=== PATIENT | female | born 1980 | race African-American/Black ===

== ENCOUNTER 2016-03-18 11:15 | Inpatient (IN) | payer MEDICARE ==
[~2016-03-18] VITALS: Ht 162.6 cm; Wt 96.8 kg
--- NOTE | ~2016-03-18 | HEMODYNAMI ---
PATIENT:DANIEL VYAS MEDICAL RECORD: [id number] : 84 [id number] ADMISSION DATE: 03/18/16 Generatedon:03/20/201612:19 Patient name: DANIEL VYAS Patient #: [id number] SSN: : 1980 Date of study: 03/20/2016 Page: Of Hemodynamic Procedure Report Patient Data Patient Demographics Procedure consent was obtained First Name: DANIEL Gender: Female Last Name: ASAEL : 1980 Middle Initial: RUFUS Age: 35 year(s) Patient #: [id number] Race: Black Additional ID: [id number] Contact details [address]: [address] [place] [address] State: [place] City: [place] Zip code: [address] Past Medical History Allergies: No known allergies Admission Admission Data Admission Date: 03/18/2016 Admission Time: 11:15 Room #: D.2107 Weight (lbs.): 204 Weight (kg.): 92.53 Procedure Procedure Types Cath Procedure Peripheral Cath Diagnostic Procedure Cath Peripheral Abd/Extremity Extremities Bilat Lower Extremity Procedure Description Procedure Date Procedure Date: 03/20/2016 Procedure Start Time: 10:05 Procedure Staff Name Function Rolf Adam MD Performing Physician Mathew Israel RT Scrub Andressa Arzola RN Nurse Michelle Yao RT [employer] Finisher Michelle Yao RT Monitor Procedure Data Cath Procedure Fluoroscopy Diagnostic fluoroscopy Total fluoroscopy Time: time: 18.3 min 18.3 min Diagnostic fluoroscopy Total fluoroscopy dose: dose: 798.36 mGy 798.36 mGy Contrast Material Contrast Material Type Amount (ml) Isovue 300 225 Entry Location Entry Primary Successful Side Size Upsize Upsize Entry Closure Succes sful Closure Location (Fr) 1 (Fr) 2 (Fr) Remarks Device Remarks Femoral Right 5 Fr artery Femoral Exoseal artery Diagnostic catheters Device Type Used For End Catheter Placement Merit ULTRA BOLUS FLUSH 5Fr 65CM catheter Procedure Medications Medication Administration Route Dosage Oxygen NC 3 l/min Lidocaine 1% added to field 20 Heparin Flush Bag added to field 3 bags (1000units/500ml NS) Benadryl I.V. 50 mg Versed I.V. 0.5 mg Fentanyl I.V. 25 mcg Versed I.V. 0.5 mg Fentanyl I.V. 25 mcg Versed I.V. 0.5 mg Fentanyl I.V. 25 mcg Heparin Bolus I.V. 5000 units Nitroglycerin IC/IA I.C. 200 mcg Nitroglycerin IC/IA I.C. 200 mcg Heparin Bolus I.V. 2000 units Nitroglycerin IC/IA I.C. 200 mcg Hemodynamics Rest Heart Rate: 97 (bpm) Snapshots Pre Cath Intra NCS Post Cath Vital Signs Time Heart Resp SPO2 NIBP (mmHg) Rhythm Pain Sedation Rate (ipm) (%) Status Level (bpm) 9:20:59 97 25 Measuring NSR 0 (11) 10(A) , No pain 9:21:59 95 29 100 159/94(126) NSR 0 (11) 10(A) , No pain 9:26:29 93 20 98 160/97(138) NSR 0 (11) 10(A) , No pain 9:31:02 93 17 99 168/97(126) NSR 0 (11) 10(A) , No pain 9:35:34 96 19 99 163/95(128) NSR 0 (11) 10(A) , No pain 9:40:07 93 19 100 155/94(123) NSR 0 (11) 10(A) , No pain 9:44:35 93 18 100 162/93(118) NSR 0 (11) 10(A) , No pain 9:49:05 94 21 100 166/99(142) NSR 0 (11) 10(A) , No pain 9:53:38 95 17 99 165/95(134) NSR 0 (11) 10(A) , No pain 9:58:08 95 16 98 176/102(142) NSR 0 (11) 10(A) , No pain 10:02:45 96 18 100 178/101(139) NSR 0 (11) 10(A) , No pain 10:07:21 102 19 100 186/111(146) NSR 0 (11) 10(A) , No pain 10:12:00 95 18 100 173/102(143) NSR 0 (11) 9(A) , No pain 10:16:28 91 18 100 148/90(116) NSR 0 (11) 9(A) , No pain 10:20:52 91 20 100 151/93(115) NSR 0 (11) 9(A) , No pain 10:25:18 92 26 100 156/94(122) NSR 0 (11) 9(A) , No pain 10:29:47 91 16 100 156/92(120) NSR 0 (11) 9(A) , No pain 10:34:03 88 17 99 132/85(114) NSR 0 (11) 9(A) , No pain 10:38:29 91 19 98 124/65(98) NSR 0 (11) 9(A) , No pain 10:42:51 91 18 98 123/70(99) NSR 0 (11) 9(A) , No pain 10:47:08 93 20 97 127/77(100) NSR 0 (11) 9(A) , No pain 10:51:30 92 19 97 124/74(106) NSR 0 (11) 9(A) , No pain 10:56:51 87 16 99 145/88(110) NSR 0 (11) 9(A) , No pain 11:01:17 91 16 98 146/84(115) NSR 0 (11) 9(A) , No pain 11:05:44 92 18 98 141/84(116) NSR 0 (11) 9(A) , No pain 11:10:06 91 14 99 151/88(119) NSR 0 (11) 9(A) , No pain 11:14:32 91 16 99 152/90(114) NSR 0 (11) 9(A) , No pain 11:18:58 90 25 100 145/92(114) NSR 0 (11) 9(A) , No pain 11:23:20 92 18 99 160/100(136) NSR 0 (11) 9(A) , No pain 11:27:49 91 32 100 164/100(128) NSR 0 (11) 9(A) , No pain 11:32:21 94 23 98 147/88(121) NSR 0 (11) 9(A) , No pain 11:37:53 96 19 98 167/97(134) NSR 0 (11) 9(A) , No pain 11:42:25 97 17 99 168/100(135) NSR 0 (11) 9(A) , No pain 11:46:58 97 18 100 169/102(131) NSR 0 (11) 9(A) , No pain 11:51:33 97 16 98 168/95(146) NSR 0 (11) 9(A) , No pain 11:56:05 99 16 99 170/99(135) NSR 0 (11) 9(A) , No pain 12:00:39 101 16 100 170/102(132) NSR 0 (11) 9(A) , No pain 12:05:14 104 5 99 172/109(146) NSR 0 (11) 9(A) , No pain 12:09:48 105 13 98 174/108(139) NSR 0 (11) 9(A) , No pain 12:14:25 106 19 163/108(145) NSR 0 (11) 9(A) , No pain 12:18:55 123 15 174/112(140) NSR 0 (11) 9(A) , No pain Medications Time Medication Route Dose Verified Delivered Reason Notes E ffectiveness by by 10:03:16 Heparin Flush added 3 Andressa Andressa used for Bag to bags Dariusz Dariusz procedure (1000units/500ml field RN RN NS) 10:03:54 Oxygen NC 3 Andressa Andressa used for l/min Dariusz Dariusz line welder RN 10:04:02 Lidocaine 1% added 20ml Andressa Andressa used for to vial Dariusz Dariusz procedure field RN RN 10:04:31 Benadryl I.V. 50 mg Andressa Andressa Per Dariusz Dariusz physician RN RN 10:06:20 Versed I.V. 0.5 Andressa Andressa for sedation mg Dariusz Dariusz RN RN 10:06:26 Fentanyl I.V. 25 Andressa Andressa for sedation mcg Dariusz Dariusz RN RN 10:15:49 Versed I.V. 0.5 Andressa Andressa for sedation mg Dariusz Dariusz RN RN 10:15:53 Fentanyl I.V. 25 Andressa Andressa for sedation mcg [place] Dariusz RN RN 10:30:20 Versed I.V. 0.5 Andressa Andressa for sedation mg Dariusz Dariusz RN RN 10:30:24 Fentanyl I.V. 25 Andressa Andressa for sedation mcg [place] Dariusz RN RN 10:35:42 Heparin Bolus I.V. 5000 Andressa Andressa Per units [facility] physician RN RN 10:35:57 Nitroglycerin I.C. 200 Rolf Bansal for IC/IA mcg MD Jair Adam MD vasodilation 10:45:23 Nitroglycerin I.C. 200 Rolf Bansal for IC/IA mcg MD Jair Adam MD vasodilation 11:28:54 Heparin Bolus I.V. 2000 [facility]a [facility] 11:29:03 Nitroglycerin I.C. 200 Rolf Bansal for IC/IA mcg MD Jair Adam MD vasodilation Procedure Log Time Note 8:17:18 Patient Weight : 204 lbs 8:17:57 Use device set IR Diagnostic 8:18:00 Sterile Angiographic Pack opened to sterile field. 8:18:02 Bag Decanter opened to sterile field. 8:18:09 Acist Manifold opened to sterile field. 8:18:10 Acist Hand Control opened to sterile field. 8:18:12 Acist Syringe opened to sterile field. 8:18:25 Cook Unbound ConceptsSON 145cm guide wire opened to sterile field. 8:18:26 Micropuncture VSI 4FR kit opened to sterile field. 8:19:54 A Flexenclosure ULTRA BOLUS FLUSH 5Fr 65CM catheter was advanced over the wire and used for . 8:20:21 - 8:42:32 Time tracking: Regular hours 8:42:39 Plan of Care:Hemodynamics will remain stable., Cardiac rhythm will remain stable., Comfort level will be maintained., Respiratory function will remain adequate., Patient/ family verbilizes understanding of procedure., Procedure tolerated without complication., Recovers from procedure without complications.. 8:42:46 Signed procedure consent form obtained from patient. 8:43:06 - 8:44:18 H&P Date Dictated: 03/20/2016 Within 30 days and on chart.. 8:44:21 Pre-procedure instructions explained to patient. 8:44:22 Pre-op teaching completed and patient verbalized understanding. 8:44:24 Family in waiting room. 8:44:27 Patient NPO since Midnight. 8:44:34 Patient allergic to No known allergies 8:44:40 Is the patient allergic to Iodine/contrast media? No. 8:44:43 Is patient on blood thinner?Yes 8:44:52 Patient diabetic? Yes. 8:44:55 If diabetic: On Metformin? No 8:44:56 - 8:44:58 ----Pre-sedation anethsthesia assessment.---- 8:45:04 Previous problem with sedation/anesthesia? No ? 8:45:08 Snore? No 8:45:11 Sleep apnea? No 8:45:15 Deviated septum? No 8:45:17 Opens mouth fully? Yes 8:45:19 Sticks out tongue? Yes 8:45:22 Airway obstruction? No ? 8:45:35 Dentures? No ? 8:45:41 - 8:45:48 IV patent on arrival in left hand with 0.9% NaCl at KVO. 9:01:11 Marcello HENRY 260 guide wire opened to sterile field. 9:18:40 Pre procedure: right dorsailis pedis pulse Doppler 9:18:45 Pre procedure: right posterior tibial pulse Doppler 9:18:50 Pre procedure: left dorsailis pedis pulse Doppler 9:18:59 Pre procedure: left posterior tibial pulse Doppler 9:19:04 - 9:19:08 ECG and BP/O2 sat monitors applied to patient. 9:19:10 Vital chart was started 9:19:12 Baseline sample Acquired. 9:19:14 Full Disclosure recording started 9:19:15 - 9:19:24 Right groin area was prepped with chlora-prep and draped in sterile fashion 9:19:27 Alarms reviewed by Justus Muniz 9:19:28 Sharps counted by scrub and verified by RMontseNMontse 9:19:29 - 9:35:36 St Ko 5FR Sheath opened to sterile field. 10:02:18 Bonnie Sci Amplatz Super Stiff 75CM guide wire opened to sterile field. 10:03:16 Heparin Flush Bag (1000units/500ml NS) 3 bags added to field was given by Andressa Arzola RN; used for procedure; 10:03:54 Oxygen 3 l/min NC was given by Andressa Arzola RN; used for procedure; 10:04:02 Lidocaine 1% 20ml vial added to field was given by Andressa Arzola RN; used for procedure; 10:04:11 Physician arrived 10:04:31 Benadryl 50 mg I.V. was given by Andressa Arzola RN; Per physician; 10:05:15 --------ALL STOP TIME OUT------ 10:05:16 Final Timeout: patient, procedure, and site verified with staff and physician. All members of the team are in agreement. 10:05:27 Physical assessment completed. ASA score P 2 - A patient with mild systemic disease as per Rolf Adam MD. 10:05:32 Sedation plan: IV Moderate Sedation Versed, Fentanyl 10:05:40 Procedure started. 10:05:44 Local anesthetic to right femoral artery with Lidocaine 1% by Rolf Adam MD.INITIAL ACCESS ONLY 10:05:47 Arterial access obtained using ultrasound guidance. 10:06:00 A 5 Fr sheath was inserted into the Right Femoral artery 10:06:20 Versed 0.5 mg I.V. was given by Andressa Arzola RN; for sedation; 10:06:26 Fentanyl 25 mcg I.V. was given by Andressa Arzola RN; for sedation; 10:11:04 Terumo ANGLE 260L glide wire opened to sterile field. 10:13:00 Terumo TORQUE DEVICE PLASTIC .038 opened to sterile field. 10:14:44 Terumo 5FR ANGLED 65CM glide catheter opened to sterile field. 10:15:49 Versed 0.5 mg I.V. was given by Andressa Arzola RN; for sedation; 10:15:53 Fentanyl 25 mcg I.V. was given by Andressa Arzola RN; for sedation; 10:22:49 CXI SUPPORT .035 135 CM STR catheter opened to sterile field. 10:23:04 Terumo 6Fr Gorman Destination Sheath opened to sterile field. 10:29:12 VIPER .014 335 CM guide wire opened to sterile field. 10:30:20 Versed 0.5 mg I.V. was given by Andressa Arzola RN; for sedation; 10:30:24 Fentanyl 25 mcg I.V. was given by Andressa Arzola RN; for sedation; 10:34:53 BasixTOUCH Inflation Syringe opened to sterile field. 10:35:42 Heparin Bolus 5000 units I.V. was given by Andressa Arzola RN; Per physician; 10:35:44 Inflation number: 1 A Cordis Powerflex Pro 4.0 x 40 x 135cm balloon was prepped and advanced across the Undefined1, then inflated to 16 [place] for 0:15 (min:sec). 10:35:57 Nitroglycerin IC/IA 200 mcg I.C. was given by Rolf Adam MD; for vasodilation; 10:41:57 Inflation number: 2 The Cordis Powerflex Pro 4.0 x 40 x 135cm balloon was reinflated across the Undefined1, to 16 [place] for 43 (min:sec). 10:45:23 Nitroglycerin IC/IA 200 mcg I.C. was given by Rolf Adam MD; for vasodilation; 10:56:37 Inflation number: 3 A IN.PACT Admiral 5 x 150 balloon was prepped and advanced across the Undefined1, then inflated to 8 [place] for 4:27 (min:sec). 11:13:15 Inflation number: 4 A IN.PACT Admiral 4.0 x 120 x 135 DCB Balloon was prepped and advanced across the Undefined1, then inflated to 8 [place] for 2:51 (min:sec). 11:18:29 Inflation number: 1 A Cordis Powerflex Pro 3.0 x 40 x 135cm balloon was prepped and advanced across the Undefined2, then inflated to 17 [place] for 0:15 (min:sec). 11:28:54 Heparin Bolus 2000 units I.V. was given by Andressa Arzola RN; Per physician; 11:29:03 Nitroglycerin IC/IA 200 mcg I.C. was given by Rolf Adam MD; for vasodilation; 11:38:30 Inflation number: 1 A IN.PACT Admiral 4 x 40 x 135 DCB Balloon was prepped and advanced across the Undefined3, then inflated to 8 [place] for 2:50 (min:sec). 11:39:06 St Ko 6Fr sheath opened to sterile field. 11:41:40 Cordis 6Fr Exoseal opened to sterile field. 11:49:44 Inflation number: 2 A Saber 2 x 4 x150 balloon was prepped and advanced across the Undefined3, then inflated to 14 [place] for 0:11 (min:sec). 12:04:11 A sheath was inserted into the Femoral artery 12:04:12 Sheath removed intact; hemostasis achieved with Exoseal to the Femoral artery. 12:05:30 Procedure ended.(Physican Out) 12:11:29 Fluoroscopy time 18.30 minutes. 12:11:50 Fluoroscopy dose: 798.36 mGy 12:11:50 Flurop Dose total: 798.36 12:12:00 Contrast amount:Isovue 300 225ml. 12:12:03 Sharps counted by scrub and verified by R.N. 12:12:54 Procedure and supply charges have been captured, reviewed, submitted an d are correct. 12:19:01 End room use (Document Last) 12:19:19 Vital chart was stopped Intervention Summary Intervention Notes Time ActionType Lesion and Equipment Action# Pressure Duration Attributes Used 10:35:44 Inflate Undefined1 Cordis 1 16 00:15 balloon Powerflex Pro 4.0 x 40 x 135cm balloon 10:41:57 Reinflate Undefined1 Cordis 2 16 05:43 balloon Powerflex Pro 4.0 x 40 x 135cm balloon 10:56:37 Inflate Undefined1 IN.PACT 3 8 04:27 balloon Admiral 5 x 150 balloon 11:13:15 Inflate Undefined1 IN.PACT 4 8 02:51 balloon Admiral 5.0 x 120 x 135 DCB Balloon 11:18:29 Inflate Undefined2 Cordis 1 17 00:15 balloon Powerflex Pro 3.0 x 40 x 135cm balloon 11:38:30 Inflate Undefined3 IN.PACT 1 8 02:50 balloon Admiral 4 x 40 x 135 DCB Balloon 11:49:44 Inflate Undefined3 Saber 2 x 2 14 00:11 balloon 4 x150 balloon Device Usage Item Name Manufacture Quantity Catalog Number Hospital Part Current Minimal Lot# / Charge Number Stock Stock Serial# Code Sterile [place] 1 [id number] 568524 5 Angiographic Health Pack Bag Decanter Microtek 1 208578 97311 507832 Medical Inc. Acist Acist Medical 1 18212 482620 384317 746954 5 [place] Systems Inc Acist Hand Acist Medical 1 17086 534827 838042 975792 5 Control Systems Inc Acist Syringe Acist Medical 1 77092 587380 545105 332349 20 Systems Inc Marcello QUEZADA [facility] 1 W04480 787159 473722 5 [id number] 145cm guide wire Micropuncture VSI VASCULAR 1 7266V 247605 460393 5 VSI 4FR kit SOLUTIONS [facility] 1 [id number] 378169 647265 5 BOLUS FLUSH 5Fr 65CM catheter Cook [facility] 1 L01340 146579 561834 [address] [id number] Ko 5FR St Ko 1 721995 805989 876328 5 [id number] Sheath Bonnie Sci Bonnie 1 [id number] 252053 198021 717090 5 Amplatz Super Scientific Stiff 75CM guide wire Terumo ANGLE Terumo 1 ZQ9226 183521 161899 5 260L glide wire Terumo TORQUE Bonnie 1 TD01 087471 720780 988093 5 DEVICE Scientific PLASTIC .038 Terumo 5FR Terumo 1 CG507 656846 273357 5 ANGLED 65CM glide catheter CXI SUPPORT [facility] 1 N24409 827960 174403 5 7330099 .035 135 CM STR catheter Terumo 6Fr Terumo 1 RSR01 550154 66420 998694 5 Gorman Destination Sheath VIPER .014 Cardiovascular 1 [id number] 233560 882012 5 335 CM guide systems wire BasixTOUCH [facility] 1 GT2173 972478 603388 508943 5 Inflation Syringe Cordis Cardinal 1 [id number] 863877 546735 680113 5 Powerflex Pro Health 4.0 x 40 x 135cm balloon IN.PACT Medtronic 1 [id number] 436171 4006737 596319 5 [id number] Admiral 5 x 150 balloon IN.PACT Medtronic 1 [id number] 095474 710840 171884 5 [id number] Admiral 5.0 x 120 x 135 DCB Balloon Cordis Cardinal 1 [id number] 357516 609164 578158 5 Powerflex Pro Health 3.0 x 40 x 135cm balloon IN.PACT Medtronic 1 [id number] 487940 890914 076740 5 [id number] Admiral 4 x 40 x [address] St Ko 1 348032 381370 686459 5 [id number] sheath Cordis 6Fr Cardinal 1 EX600 245652 697763 738034 10 Exoseal Health Saber 2 x 4 Cardinal 1 [id number] 206329 658870 5 x150 balloon Health Signature Audit [place] Stage Time Signature Unsigned Intra-Procedure 03/20/2016 Michelle Yao 12:19:14 PM RT(R) Signatures Monitor : Michelle Yao RT Signature : Date : Time : [address] [place] [address]
[~2016-03-18 11:15] MED LIST: CARDIZEM60 MG PO; LEVEMIR100 U/M1 SQ; REGLAN10 MG PO
--- NOTE | 2016-03-18 11:36 | NUR ---
RECEIVED PT VIA WHEELCHAIR FROM HOSPITAL STAFF.
[2016-03-18 11:48] VITALS: BP 130/75; BMI 36.6
[2016-03-18 11:59] VITALS: BP 130/75
--- NOTE | 2016-03-18 12:18 | NUR ---
ADMITTED PT, QUICK START DONE, ADMISSION ASSESSMENT DONE, AND ADMISSION HX DONE. PTS MOM STATED SHE WOULD BRING PTS HOME MEDICATION UP HERE SO WE COULD PUT IT IN HER MEDICAION LIST BECAUSE PT AND MOM COULD NOT STATE THE EXACT MEDICAION PT IS ON. UPDATED AT FEW OF THE MEDICATIONS PT KNEW ABOUT.
--- NOTE | 2016-03-18 12:39 | NUR ---
RADHA SOLER, VASCULAR ACCESS NURSE ATTEMPTED TO STICK PT AND COULD NOT GET FLASHBACK. RAVINDRA GARCIA STATED SHE WILL WAIT UNTIL AFTER PT EATS AND COME BACK AND TRY AGAIN WITH THE DOPPLER.
--- NOTE | 2016-03-18 12:40 | NUR ---
WOUND TO LEFT BIG TOE SEEN WITH MEASUREMENTS OF 6CM X 5CM X 0.5CM WITH ESCHAR SEEN AND SOME DISCOLORATION. RAVINDRA BANERJEE (WOUND CARE NURSE) IN ROOM WITH ME ASSESSING PT. ADAPTIC DRESSING APPLIED AND WRAPPED WITH 4X4 GAUZE AND TAPED PER RAVINDRA BANERJEE ORDERES. WILL CONTINUE TO MONITOR.
[2016-03-18] MEDS ORDERED: MIDAMOR5 MG PO (12:44)
[2016-03-18] MEDS ORDERED: LASIX80 MG PO (12:44)
[2016-03-18] MEDS ORDERED: BAYER CHEWABLE81 MG PO (12:44)
[2016-03-18] MEDS ORDERED: PROTONIX40 MG PO (12:45)
[2016-03-18] MEDS ORDERED: NEPHRO-VITE RX1 TAB PO (12:45)
[2016-03-18] MEDS ORDERED: RENVELA800 MG PO (12:46)
[2016-03-18] MEDS ORDERED: VENTOLIN HFA18 GM INH (12:49)
[2016-03-18] MEDS ORDERED: ZYRTEC10 MG PO (12:49)
[2016-03-18] MEDS ORDERED: MIDODRINE HCL5 MG PO (12:55)
--- NOTE | 2016-03-18 14:19 | NUR ---
IV access-22 gauge catheter inserted in left hand after multiple attempts. Crystal DíazRN
[2016-03-18 14:23] LABS: BASOPHILS 0.2 % (0.0-2.0); EOSINOPHILS 1.2 % (0-7); HEMATOCRIT 36.4 % (36.0-48.0); HEMOGLOBIN 11.5 g/dL (12-16); IMMATURE GRANULOCYTES 0.6 % (0-5); LYMPHOCYTES 14.5 % (15-50); MCH 28.5 pg (26.0-34.0); MCHC 31.6 g/dL (31.0-37.0); MCV 90.1 fL (80.0-100.0); MONOCYTES 9.6 % (2-11); NEUTROPHILS 73.9 % (40-80); PLATELET COUNT 275 10x3/uL (130-400); RBC 4.04 10x6/uL (4.00-5.40); RDW 15.3 % (11.5-14.5); WBC 12.9 10x3/uL (4.8-10.8)
[2016-03-18 14:45] LABS: ALBUMIN 4.1 g/dL (3.4-5.0); ANION GAP 17.3 mmol/L (8-16); BILIRUBIN - TOTAL 0.33 mg/dL (0.2-1.3); CALCIUM 9.3 mg/dL (8.5-10.1); CARBON DIOXIDE 26.4 mmol/L (21.0-32.0); CREATININE - SERUM 6.4 mg/dL (0.6-1.3); POTASSIUM - SERUM 4.7 mmol/L (3.5-5.1); PROTEIN - SERUM 8.2 g/dL (6.4-8.2)
--- NOTE | 2016-03-18 15:41 | NUR ---
WOUND CARE CONSULT; PT ARRIVED TO M2 WITH WOUND TO RIGHT GREAT TOE. IT IS DARK/DISCOLORED WITH NECROTIC TISSUE NOTED ON PLANTAR ASPECT AND A LARGE BLACK SCABBED AREA ON TOP OF TOE. ENTIRE AREA MEASURES 6CM X 5CM X 0.5CM (DEPTH IS FROM NECROTIC AREA ON PLANTAR ASPECT) . SHE IS BEING SEEN BY DR. REINA AT THE [facility] ONCE/WEEK - HER MOTHER IS DOING DAILY DRESSING CHANGES USING A "HONEY" DRESSING. MOTHER STATES SHE HAS BEEN USING THE HONEY DRESSING FOR OVER A MONTH BUT THE WOUND CONTINUES TO GET WORSE. THERE IS A SURGICAL CONSULT. WOUND CARE WILL CONTINUE TO MONITOR.
[2016-03-18 16:44] VITALS: BP 139/79
--- NOTE | 2016-03-18 19:38 | NUR ---
RECEIVED REPORT,IV-L.HAND-NS@ KVO, PT IS ACHS, PT IS A&O,DENIES ANY NEEDS, CALL LIGHT IN REACH, BED IS LOW, SRX2. WILL CONTINUE TO MONITOR
[2016-03-18 20:20] VITALS: BP 136/65
[2016-03-19] VITALS (7 sets, daily range): BP systolic 136–150; BP diastolic 57–82; Ht 162.6 cm; Wt 96.8 kg
--- NOTE | 2016-03-19 05:12 | NUR ---
WATCHING TV, DENIES ANY NEEDS, CALL LIGHT IN REACH, BED IS LOW,
--- NOTE | 2016-03-19 07:22 | NUR ---
PT SITTING UP IN BED DENIES NEEDS WILL CONT TO MONITOR.
--- NOTE | 2016-03-19 19:51 | NUR ---
RN ACLS AT BEDSIDE TO OBTAIN VITALS, CALL LIGHT IN REACH. WILL CONTINUE WITH PLAN OF CARE.
[2016-03-20 02:01] VITALS: BP 154/56
[2016-03-20 04:46] LABS: BASOPHILS 0.4 % (0.0-2.0); EOSINOPHILS 2.8 % (0-7); HEMATOCRIT 33.3 % (36.0-48.0); HEMOGLOBIN 10.4 g/dL (12-16); IMMATURE GRANULOCYTES 0.5 % (0-5); LYMPHOCYTES 10.8 % (15-50); MCH 28.1 pg (26.0-34.0); MCHC 31.2 g/dL (31.0-37.0); MEAN PLATELET VOLUME 9.1 fL (7.4-10.4); MONOCYTES 10.4 % (2-11); NEUTROPHILS 75.1 % (40-80); PLATELET COUNT 288 10x3/uL (130-400); RDW 15.3 % (11.5-14.5); WBC 11.2 10x3/uL (4.8-10.8)
[2016-03-20 04:57] LABS: INR 1.18 (0.85-1.17); PROTIME 14.9 SECONDS (11.6-15.0)
[2016-03-20 05:24] LABS: CALCIUM 9.2 mg/dL (8.5-10.1); CARBON DIOXIDE 24.1 mmol/L (21.0-32.0); POTASSIUM - SERUM 5.1 mmol/L (3.5-5.1); VANCOMYCIN - RANDOM 16.3 ug/mL (10.0-20.0)
[2016-03-20 05:25] LABS: CREATININE - SERUM 11.1 mg/dL (0.6-1.3)
--- NOTE | 2016-03-20 07:58 | NUR ---
0730-NPO AT PRESENT TIME FOR PROCEDURES.IR TO CALL AND STATES THEY ARE GOING TO PLACE AN ORDER FOR ANOTHER CONSENT TO BE SIGNED. NS INFUSING TO LEFT HAND AT 5 CC/HR. ON ROOM AIR. RIGHT AVF WITH + BRUIT AND THRILL. WILL MONITOR.
[2016-03-20 08:00] VITALS: BP 153/58
--- NOTE | 2016-03-20 09:19 | NUR ---
0850-TO IR VIA BED.
--- NOTE | 2016-03-20 12:50 | NUR ---
1235-RECEIVED BACK VIA BED FROM IR. RIGHT GROIN DRESSING IS CLEAN AND DRY. PPP AND STRONG. DENIES NEEDS AT THIS TIME. TO LAY WITH RIGHT LEG STRAIGHT X 6 HOURS. FAMILY MEMBER AT BEDSIDE.
--- NOTE | 2016-03-20 13:28 | NUR ---
RECEIVED PT REPORT. WILL CONTINUE TO MONITOR. NO OTHER NEEDS WILL CONTINUE PLAN OF CARE.
--- NOTE | 2016-03-20 14:26 | NUR ---
Patient Name: DANIEL VYAS Admission Status: Elective Accout number: [id number] Admission Date: 03-18-2016 : 1980 Admission Diagnosis:GANGRENE, NOT ELSEWHERE CLASSIFIED Attending: CLARISSA Current LOS: 2 Anticipated DC Date: Planned Disposition: Home Primary Insurance: MEDICARE A & B Discharge Planning Comments: * Is the patient Alert and Oriented? Yes 0 * How many steps to enter\exit or inside your home? RAMP 0 * PCP DR. SHINE JOHNSTON 0 * Pharmacy [facility] [place] [facility] MAIL ORDER 0 * Preadmission Environment Home with Family 0 * ADLs Independent 0 * Equipment Nebulizer Walker 0 * Other Equipment NO MEDICAL EQUIPMENT PROVIDER PREFERENCE 0 * List name and contact numbers for known caregivers / representatives who currently or will assist patient after discharge: FAIZAN VYAS, MOTHER, 0 * Community resources currently utilized Other 0 * Please name any agencies selected above. OUTPATIENT DIALYSIS, [facility], W/FW/F, 0545 AM, SEAT BUS TRANSPORTATION 0 * Additional services required to return to the preadmission environment? No 0 * Can the patient safely return to the preadmission environment? Yes 0 * Has this patient been hospitalized within the prior 30 days at any hospital? No 0 CM MET WITH PT AND MOTHER IN ROOM TO DISCUSS DISCHARGE PLANNING AND NEEDS. PT REPORTS LIVING AT HOME INDEPENDENTLY WITH HER MOTHER AND DAUGHTER. PT HAS NEBULIZER AND WALKER WITH NO MEDICAL EQUIPMENT PROVIDER PREFERENCE. PT HAS NO OUTSIDE SERVICES ASSISTING IN THE HOME. CM DISCUSSED AVAILABILITY OF HOME HEALTH, REHAB SERVICES AND MEDICAL EQUIPMENT. PT DENIES DISCHARGE NEEDS AT THIS TIME, REPORTS HER FAMILY WILL PICK HER UP FOR DISCHARGE HOME. PT PLANS TO DISCHARGE HOME WITH HER MOTHER, DENIES DISCHARGE NEEDS AT THIS TIME. CM TO FOLLOW AND ASSIST NEEDED. Hardwood Floor Finisher: Margarito Roberts
[2016-03-20 16:00] VITALS: BP 149/88
--- NOTE | 2016-03-20 19:17 | NUR ---
INIITAL ROUNDS COMPLETED. DIALYSIS IN PROGRESS. WILL CONTINUE TO MONITOR.
[2016-03-20 20:24] VITALS: BP 143/87
--- NOTE | 2016-03-20 22:37 | NUR ---
ADMISSION ASSESSMET COMPLETED AT 1945 HRS. VSS. IV TO L HAND SL. LUNGS CTA. L FOOT WARM TO TOUCH WITH VERY FAINT DORSALIS PEDIS PULSE. L GREAT TOE BLACK. ZAMBRANO. PM FSBS 128. NO COVERAGE NEEDED. DIALYSISCOMPLETED AT THIS TIME. WILL CONTINUE TO MONITOR. SR UP X2, CALL LIGHT WITHIN REACH.
--- NOTE | 2016-03-21 00:31 | NUR ---
PT DENIES ANY DISCOMFORT. AV FISTULA DRESSING CLEAN,DRY AND INTACT. FAMILY AT BEDSIDE. WILL CONTINUE TO MONITOR.
[2016-03-21 01:07] VITALS: BP 112/55
--- NOTE | 2016-03-21 01:53 | NUR ---
PT RESTING WITH EYES CLOSED. RESP EVEN AND REGULAR. SR UP X2, CALL LIGHT WITHIN REACH. FAMILY AT BEDSIDE.
--- NOTE | 2016-03-21 03:53 | NUR ---
PT RESTING WITH EYES CLOSED. RESP EVEN AND REGULAR. SR UP X2, CALL LIGHT WITHIN REACH.
[2016-03-21 05:01] VITALS: BP 138/63
[2016-03-21 05:37] LABS: BASOPHILS 0.4 % (0.0-2.0); EOSINOPHILS 2.4 % (0-7); HEMATOCRIT 33.1 % (36.0-48.0); HEMOGLOBIN 10.3 g/dL (12-16); IMMATURE GRANULOCYTES 0.3 % (0-5); LYMPHOCYTES 12.3 % (15-50); MCH 27.8 pg (26.0-34.0); MCHC 31.1 g/dL (31.0-37.0); MCV 89.2 fL (80.0-100.0); NEUTROPHILS 74.6 % (40-80); PLATELET COUNT 246 10x3/uL (130-400); RBC 3.71 10x6/uL (4.00-5.40); RDW 15.2 % (11.5-14.5); WBC 11.2 10x3/uL (4.8-10.8)
[2016-03-21 05:56] LABS: CARBON DIOXIDE 28.5 mmol/L (21.0-32.0); POTASSIUM - SERUM 4.5 mmol/L (3.5-5.1); VANCOMYCIN - RANDOM 10.8 ug/mL (10.0-20.0)
[2016-03-21 06:02] LABS: CREATININE - SERUM 7.7 mg/dL (0.6-1.3)
--- NOTE | 2016-03-21 06:31 | NUR ---
VSS THROUGHOUT SHIFT. PT DENIED ANY DISCOMFORT. NEEDS MET; WILL CONTINUE TO MONITOR.
[2016-03-21 07:00] VITALS: BP 138/77
--- NOTE | 2016-03-21 07:00 | NUR ---
RECEIVED REPORT. ASSUMED CARE OF PATIENT. CALL LIGHT WITHIN REACH. FEMALE VISITOR AT BEDSIDE. ALERT/ORIENTED. DENIES NEEDS AT THIS TIME. FAINT LEFT PEDAL PULSE. NO ACUTE DISTRESS.
[2016-03-21 11:29] LABS: HCG SERUM NEGATIVE (NEGATIVE)
--- NOTE | 2016-03-21 11:47 | NUR ---
FSBS 150. NO INSULIN COVERAGE REQUIRED PER SLIDING SCALE.
[2016-03-21 12:00] VITALS: BP 141/73
[2016-03-21 16:00] VITALS: BP 119/61
--- NOTE | 2016-03-21 16:15 | NUR ---
FSBS 129. NO INSULIN REQUIRED PER SLIDING SCALE.
--- NOTE | 2016-03-21 19:35 | NUR ---
ASSESSMENT COMPLETE, A&O. AWAKE IN BED, WATCING TV. RESPERATIONS EVEN ON ROOM AIR. IV TO LEFT HAND SL, SITE CLEAN AND DRY. PT DENIES PAIN OR NEEDS, BED LOW, CL IN REACH, PTS MOTHER AT BED SIDE.
[2016-03-21 20:15] VITALS: BP 117/55
--- NOTE | 2016-03-21 21:36 | NUR ---
BS 195, COVERED PER S/S, PT DENIES PAIN OR NEEDS. PT MOTHER AT BED SIDE, BED LOW, CL IN REACH.
[2016-03-22 00:05] VITALS: BP 129/61
--- NOTE | 2016-03-22 00:52 | NUR ---
RESTING WITH EYES CLOSED, RESPERATIONS EVEN, NO S/S DISTRESS NOTED.
[2016-03-22 04:12] VITALS: BP 137/67
--- NOTE | 2016-03-22 05:00 | NUR ---
PT RESTING WITH NO DISTRESS. RESPS EVEN/NONLABORED. CPOC.
[2016-03-22 05:41] LABS: BASOPHILS 0.5 % (0.0-2.0); EOSINOPHILS 3.3 % (0-7); HEMATOCRIT 29.6 % (36.0-48.0); HEMOGLOBIN 9.3 g/dL (12-16); IMMATURE GRANULOCYTES 0.3 % (0-5); LYMPHOCYTES 14.3 % (15-50); MCHC 31.4 g/dL (31.0-37.0); MCV 89.2 fL (80.0-100.0); MONOCYTES 13.8 % (2-11); NEUTROPHILS 67.8 % (40-80); PLATELET COUNT 224 10x3/uL (130-400); RBC 3.32 10x6/uL (4.00-5.40); RDW 15.2 % (11.5-14.5); WBC 10.7 10x3/uL (4.8-10.8)
[2016-03-22 06:01] LABS: ANION GAP 19.5 mmol/L (8-16); CALCIUM 8.5 mg/dL (8.5-10.1); CARBON DIOXIDE 26.2 mmol/L (21.0-32.0); POTASSIUM - SERUM 4.7 mmol/L (3.5-5.1)
[2016-03-22 06:03] LABS: CREATININE - SERUM 10.4 mg/dL (0.6-1.3)
--- NOTE | 2016-03-22 07:00 | NUR ---
RECEIVED REPORT. ASSUMED CARE OF PATIENT. FEMALE VISITOR SITTING IN CHAIR NEXT AT BEDSIDE. PATIENT WITH EYES CLOSED, RESP EVEN AND UNLABORED. NO DISTRESS. CALL LIGHT WITHIN REACH.
[2016-03-22 09:00] VITALS: BP 151/82
--- NOTE | 2016-03-22 11:11 | NUR ---
FSBS 144. NO INSULIN ADMINISTERED PER SLIDING SCALE.
[2016-03-22 12:00] VITALS: BP 127/65
--- NOTE | 2016-03-22 12:00 | NUR ---
CONSENTS SIGNED AND ON THE CHART FOR PROCEDURE IN AM.
[2016-03-22 16:00] VITALS: BP 139/74
--- NOTE | 2016-03-22 16:41 | NUR ---
FSBS 116. NO INSULIN COVERAGE REQUIRED PER SLIDING SCALE.
--- NOTE | 2016-03-22 19:29 | NUR ---
REPOSITIONED IN BED FOR COMFORT. REMINDED PT OF NOTHING TO EAT OR DRINK AFTER MN FOR SURGERY IN AM. PT REPEATED UNDERSTANDING. WILL CONT TO MONITOR.
[2016-03-22 20:00] VITALS: BP 151/77
--- NOTE | 2016-03-22 20:10 | NUR ---
BS 117, NO COVERAGE PER S/S. DENIES PAIN OR NEEDS, BED LOW, CL IN REACH.
[2016-03-23] VITALS: BP 153/90
[2016-03-23 04:00] VITALS: BP 146/79
--- NOTE | 2016-03-23 04:54 | NUR ---
PROGRAM SERVICES ASSISTANT AT BEDSIDE TO OBTAIN VITALS, CALL [facility] IN REACH. WILL CONTINUE WITH PLAN CARE
[2016-03-23 05:31] LABS: BASOPHILS 0.3 % (0.0-2.0); EOSINOPHILS 3.4 % (0-7); HEMATOCRIT 29.6 % (36.0-48.0); HEMOGLOBIN 9.2 g/dL (12-16); IMMATURE GRANULOCYTES 0.3 % (0-5); LYMPHOCYTES 16.3 % (15-50); MCH 27.6 pg (26.0-34.0); MCHC 31.1 g/dL (31.0-37.0); MCV 88.9 fL (80.0-100.0); MEAN PLATELET VOLUME 9.2 fL (7.4-10.4); MONOCYTES 11.8 % (2-11); NEUTROPHILS 67.9 % (40-80); PLATELET COUNT 256 10x3/uL (130-400); RBC 3.33 10x6/uL (4.00-5.40); RDW 14.9 % (11.5-14.5); WBC 10.9 10x3/uL (4.8-10.8)
[2016-03-23 05:48] LABS: ANION GAP 20.7 mmol/L (8-16); CALCIUM 8.9 mg/dL (8.5-10.1); CARBON DIOXIDE 25.4 mmol/L (21.0-32.0); CREATININE - SERUM 12.9 mg/dL (0.6-1.3); POTASSIUM - SERUM 5.1 mmol/L (3.5-5.1)
[2016-03-23 05:52] LABS: APTT 33.9 SECONDS (22.8-39.4); INR 1.41 (0.85-1.17); PROTIME 17.1 SECONDS (11.6-15.0)
--- NOTE | 2016-03-23 07:40 | NUR ---
RECEIVED PT REPORT. NO OTHER NEEDS AT THIS TIME. WILL CONTINUE PLAN OF CARE. NO OTHER NEEDS AT THIS TIME.
[2016-03-23 08:16] VITALS: BP 165/83
--- NOTE | 2016-03-23 10:02 | NUR ---
PT IS ALERT. ASSESSMENT DONE PER FLOWSHEET. NO OTHER NEEDS AT THIS TIME. NO OTHER NEEDS AT THIS TIME. WILL CONTINUE TO MONTIOR.
--- NOTE | 2016-03-23 10:44 | NUR ---
Nutrition follow-up: Pt NPO at this time for toe amputation PO intake of renal diet has been ~100% of meals Labs reviewed Wt: 218# RDN following.
[2016-03-23 11:37] VITALS: BP 173/86
--- NOTE | 2016-03-23 13:58 | NUR ---
NO SS OF DISTRESS AT THIS TIME. WILL CONTINUE TO MONITOR.
--- NOTE | 2016-03-23 14:45 | NUR ---
INFORMED PT THAT HER SURGERY HAD BEEN BUMPED BACK FROM 1PM TO ROUGHLY 4PM. PT HAD NO OTHER NEEDS AT THIS TIME. WILL CONTINUE TO MONITOR.
[2016-03-23 15:53] VITALS: BP 171/86
--- NOTE | 2016-03-23 19:25 | NUR ---
PT IS OFF UNIT IN SURGERY AT THIS TIME. DIALYSIS NURSE JUST STATED SHE SPOKE WITH DR ESCOBEDO, AND HE AGREED TO PUT OFF DIALYSIS UNTIL TOMMORROW.
--- NOTE | 2016-03-23 19:44 | NUR ---
FINGER STICK BLOOD SUGAR - 114
[2016-03-23 20:00] VITALS: BP 137/77
--- NOTE | 2016-03-23 20:00 | NUR ---
PT RECIEVED FROM RECOVERY ROOM VIA BED. PT IS VERY DROWSY, BUT WILL OPEN EYES TO VOICE. DENIES ACUTE DISCOMFORT. VSS. STUDENT SERVICES COUNSELOR STARTED TO IV. PT INSTRUCTED IN USE. 2 FAMILY MEMBERS ARE AT BEDSIDE.
--- NOTE | 2016-03-23 22:26 | NUR ---
PT RESTING QUIETLY IN BED WITH EYES CLOSED. AWAKENS TO VERBAL STIMULI. DENIES PAIN OR DISCOMFORT. DRESSING TO FOOT IS CDI. GOOD CAPILLARY REFILL NOTED.
--- NOTE | 2016-03-23 23:38 | NUR ---
EYES CLOSED, RESP EVEN AND UNLAB. LYING SUPINE WITH HOB UP SR UP X2, C/L IN REACH. DRESSING TO RT FOOT CDI. CONTINUE TO MONITOR.
[2016-03-24] VITALS: BP 135/67
--- NOTE | 2016-03-24 01:46 | NUR ---
PT IS RESTING IN BED WITH EYES OPEN. ALERT AND ORIENTED X 3. DENIES DISCOMFORT. DRESSING IS CDI. NO DISTRESS NOTED. VISITOR IS SLEEPING IN CHAIR AT BEDSIDE.
--- NOTE | 2016-03-24 03:37 | NUR ---
PT RESTING IN BED WITH EYES CLOSED. NO DISTRESS NOTED. DRESSING TO FOOT IS CDI.
[2016-03-24 06:14] LABS: BASOPHILS 0.6 % (0.0-2.0); EOSINOPHILS 4.6 % (0-7); HEMATOCRIT 28.8 % (36.0-48.0); HEMOGLOBIN 8.9 g/dL (12-16); IMMATURE GRANULOCYTES 0.3 % (0-5); LYMPHOCYTES 24.9 % (15-50); MCH 27.6 pg (26.0-34.0); MCHC 30.9 g/dL (31.0-37.0); MCV 89.4 fL (80.0-100.0); MEAN PLATELET VOLUME 9.1 fL (7.4-10.4); MONOCYTES 8.9 % (2-11); NEUTROPHILS 60.7 % (40-80); PLATELET COUNT 238 10x3/uL (130-400); RBC 3.22 10x6/uL (4.00-5.40); RDW 14.8 % (11.5-14.5); WBC 9.5 10x3/uL (4.8-10.8)
[2016-03-24 06:35] LABS: ANION GAP 18.8 mmol/L (8-16); CALCIUM 8.1 mg/dL (8.5-10.1); CARBON DIOXIDE 24.4 mmol/L (21.0-32.0); CREATININE - SERUM 14.1 mg/dL (0.6-1.3); POTASSIUM - SERUM 5.2 mmol/L (3.5-5.1)
--- NOTE | 2016-03-24 06:40 | NUR ---
PT IS RESTING IN BED WATCHING TV. DENIES PAIN OR DISCOMFORT AT THIS TIME. NO NEEDS VOICED. DRESSING TO FOOT IS CDI. GOOD CAPILLARY REFILL NOTED.
--- NOTE | 2016-03-24 07:09 | NUR ---
RECEIVED PT REPORT. NO OTHER NEEDS AT THIS TIME. WILL CONTINUE PLAN OF CARE.
[2016-03-24 07:46] VITALS: BP 149/84
[2016-03-24 11:36] VITALS: BP 140/87
[2016-03-24 15:18] VITALS: BP 140/80
--- NOTE | 2016-03-24 19:27 | NUR ---
ASSESSMENT COMPLETE, A&O. RESPERATIONS EVEN ON O2 AT 2 LITER. IV TO LEFT HAND WITH NS INFUSING AT 10 CC/HR, SITE CLEAN AND DRY. MORPHINE EARLY LEARNING TEACHER IN USE FOR PAIN CONTROL. DRSG TO LEFT FOOT C/D/I. PT CURRENTLY DENIES PAIN OR NEEDS, BED LOW, CL IN REACH. WILL CONT TO MONITOR.
[2016-03-24 20:02] VITALS: BP 152/90
[2016-03-25 01:39] VITALS: BP 162/81
--- NOTE | 2016-03-25 03:26 | NUR ---
RESTING WITH EYES CLOSED, RESPERATIOSN EVEN, NO S/S DISTRESS NOTED.
--- NOTE | 2016-03-25 04:11 | NUR ---
PT LAYING IN BED NO DISTRESS OBSERVED WILL MONITOR
[2016-03-25 04:37] VITALS: BP 136/82
[2016-03-25 06:37] LABS: BASOPHILS 0.5 % (0.0-2.0); EOSINOPHILS 3.4 % (0-7); HEMATOCRIT 31.3 % (36.0-48.0); HEMOGLOBIN 9.8 g/dL (12-16); IMMATURE GRANULOCYTES 0.4 % (0-5); LYMPHOCYTES 16.7 % (15-50); MCH 27.8 pg (26.0-34.0); MCHC 31.3 g/dL (31.0-37.0); MCV 88.7 fL (80.0-100.0); MONOCYTES 10.3 % (2-11); NEUTROPHILS 68.7 % (40-80); PLATELET COUNT 266 10x3/uL (130-400); RBC 3.53 10x6/uL (4.00-5.40); WBC 11.8 10x3/uL (4.8-10.8)
[2016-03-25 07:04] LABS: ANION GAP 19.2 mmol/L (8-16); CALCIUM 8.6 mg/dL (8.5-10.1); CARBON DIOXIDE 26.3 mmol/L (21.0-32.0); CREATININE - SERUM 10.8 mg/dL (0.6-1.3); POTASSIUM - SERUM 4.5 mmol/L (3.5-5.1); VANCOMYCIN - RANDOM 11.6 ug/mL (10.0-20.0)
[2016-03-25 08:00] VITALS: BP 161/85
--- NOTE | 2016-03-25 08:01 | NUR ---
PATIENT6 SITTING UP IN BED FOR BREAKFAST. ALERT/ORIENT X4. VOICES NO NEEDS. CALL LIGHT WITHIN REACH
--- NOTE | 2016-03-25 09:40 | NUR ---
RESTS IN BED WITH CALL LIGHT IN REACH. FAMILY MEMBER AT BS. GISELA NEEDS AT THIS TIME. WILL MONITOR.
--- NOTE | 2016-03-25 10:02 | NUR ---
IV access-22 gauge inserted in left forearm x 2 attempts for IV access. Crystal Díaz RN
--- NOTE | 2016-03-25 11:00 | NUR ---
GLUCOSE LEVEL 121. NO SLIDING SCALE INSULIN GIVEN
--- NOTE | 2016-03-25 11:00 | NUR ---
DRESSING CHANGED DONE TO LEFT GREAT TOE/FOOT. MOTHER IN ROOM. THIS NURSE WENT OVER DRESSING CHANGED WITH PATIENTS MOTHER.
[2016-03-25 12:09] VITALS: BP 141/71
--- NOTE | 2016-03-25 14:00 | NUR ---
PATIENT RESTING IN BED. SHOE BOOT FOR LEFT FOOT BROUGHT INTO ROOM AND PATIENT SHOWN HOW TO USE.
--- NOTE | 2016-03-25 16:05 | NUR ---
DIALYSIS IN PATIENTS ROOM. STARTING TX.
[2016-03-25 17:46] VITALS: BP 174/96
[2016-03-25 19:56] VITALS: BP 153/80
--- NOTE | 2016-03-25 21:30 | NUR ---
APPLIED SHOE/BOOT RO LEFT FOOT AND UP TO BSC TO VOID. DRESSING C/D/I. PT DENIES PAIN. COMPLETE ASSESSMENT PER FLOWSHEET. NO OTHER NEEDS. WILL REASSESS AND CONTINUE TO MONITOR.
[2016-03-26 01:31] VITALS: BP 151/75
[2016-03-26 04:40] VITALS: BP 150/81
[2016-03-26 07:01] LABS: BASOPHILS 0.4 % (0.0-2.0); EOSINOPHILS 3.5 % (0-7); HEMATOCRIT 29.6 % (36.0-48.0); HEMOGLOBIN 9.2 g/dL (12-16); IMMATURE GRANULOCYTES 0.3 % (0-5); LYMPHOCYTES 16.8 % (15-50); MCH 27.8 pg (26.0-34.0); MCHC 31.1 g/dL (31.0-37.0); MCV 89.4 fL (80.0-100.0); MONOCYTES 10.3 % (2-11); NEUTROPHILS 68.7 % (40-80); PLATELET COUNT 257 10x3/uL (130-400); RBC 3.31 10x6/uL (4.00-5.40); RDW 14.8 % (11.5-14.5); WBC 11.6 10x3/uL (4.8-10.8)
[2016-03-26 07:09] LABS: ANION GAP 19.5 mmol/L (8-16); CALCIUM 8.7 mg/dL (8.5-10.1); CARBON DIOXIDE 25.1 mmol/L (21.0-32.0); CREATININE - SERUM 12.8 mg/dL (0.6-1.3); PHOSPHOROUS 8.8 mg/dL (2.5-4.9); POTASSIUM - SERUM 4.6 mmol/L (3.5-5.1); VANCOMYCIN - RANDOM 12.3 ug/mL (10.0-20.0)
[2016-03-26] MEDS ORDERED: PLAVIX75 MG PO (08:03)
[2016-03-26 08:22] VITALS: BP 168/91
--- NOTE | 2016-03-26 09:09 | NUR ---
Patient Name: DANIEL VYAS Encounter No: [id number] : 1980 Primary Insurance: MEDICARE A & B Anticipated DC Date: 03-26-2016 Planned Disposition: Home DCP follow-up note: CM RECEIVED ORDER FOR HOME HEALTH AND DISCHARGE; CM SPOKE TO BUSINESS BANKER WHO ADVISED THAT SHE HAS SPOKEN TO PT AND MOTHER IN ROOM, PT NOT REQUIRING HOME HEALTH AT THIS TIME. CM MET WITH PT AND HER MOTHER IN ROOM TO DISCUSS DISCHARGE NEEDS AND PLANNING. CM DISCUSSED AVAILABILITY OF HOME HEALTH, REHAB SERVICES AND MEDICAL EQUIPMENT. PT DENIES DISCHARGE NEEDS AND REQUESTED ANOTHER WALKER REPORTING SHE RECEIVED HER CURRENT WALKER FROM A FAMILY MEMBER IN 2004 AND WANTS A NEW ONE, PT HAS NO PREFERENCE ON PROVIDER AND WANTS IT DELIVERED TO THE HOSPITAL FOR DISCHARGE HOME. MOTHER TO TRANSPORT HOME AT DISCHARGE. IMPORTANT MESSAGE FROM MEDICARE PROVIDED AND EXPLAINED. CM OBTAINED ORDER FOR WALKER, CALLED [facility], , PROVIDED REFERRAL TO [facility] WHO WILL ARRANGE HOSPITAL DELIVERY OF WALKER; CM FAXED REFERRAL INFORMATION TO [phone]. NO FURTHER DISCHARGE NEEDS IDENTIFIED. Margarito Roberts, CASE MANAGEMENT
--- NOTE | 2016-03-26 09:45 | NUR ---
PT IS ALERT. ASSESSMENT DONE PER FLOWSHEET. NO OTHER NEEDS AT THIS TIME. WILL CONTINUE TO MONTIOR.
[2016-03-26 11:00] VITALS: BP 133/75
--- NOTE | 2016-03-26 11:38 | NUR ---
DC TEACHING PROVIDED, IV REMOVED. NO OTHER NEEDS AT THIS TIME. WILL CONTINUE TO MONITOR. WILL CALL FOR WHEELCHAIR
--- NOTE | 2016-03-27 07:09 | DS ---
PATIENT:DANIEL KIRKPATRICK :[birth year] MEDICAL RECORD: [id number] DISCHARGE SUMMARY ADMISSION DATE: 03/18/16 DISCHARGE DATE: 03/26/16 HISTORY OF PRESENT ILLNESS: Ms. Kirkpatrick is a 35-year-old black female with end-stage renal disease due to diabetes mellitus on dialysis 3 times weekly in [place], presented with evidence of progressive gangrene of her great toe and was admitted for the above. HOSPITAL COURSE: The patient received a course of antibiotic therapy, specifically Zosyn and vancomycin. She had an arteriogram done that revealed marked occlusive disease and had angioplasty done by interventional radiology to her RELATIONSHIP SPECIALIST and posterior tibial vessels; following that, was taken to surgery where she had a left great toe amputation by Dr. Altman. Postoperatively, she did well and was stable at the time of discharge; she had no major intercurrent problems. DISCHARGE DIAGNOSES: 1. Severe peripheral vascular disease. 2. Status post left great toe amputation. 3. End-stage renal disease. 4. Diabetes mellitus. 5. Hypertension. 6. Diabetes mellitus. 7. Chronic anemia. 8. Gastroparesis. PLAN: The patient will be discharged today. She will resume her home meds of Reglan and Protonix and her last insulin dose; additional meds at home will be Protonix 40 mg daily, hydrocodone 525 p.r.n., Lasix 80 on nondialysis day. She will resume Epogen in the dialysis unit, Levemir 30 daily, Renagel 800 t.i.d., Dayanna p.r.n., and Plavix 75 mg daily. She will be in [place] [facility] tomorrow. She will resume her renal diabetic diet. We will see her on a weekly basis in [place]. TRANSINT:[id number] Voice Confirmation ID: [id number] DOCUMENT ID: [id number] NASRA GREGORY MD at 0709 CC: [id number] DICTATION DATE: 03/26/16 0734 BRACELET MAKER NOVELTY: 03/26/16 1849 DIS IN 03/26/16 [facility] [address] [place] [address]
--- NOTE | 2016-04-13 14:52 | OP ---
PATIENT NAME: DANIEL VYAS MEDICAL RECORD: [id number] :[birth year] LOCATION:D.M2 D.2107 ADMISSION DATE:03/18/16 SURGEON: MELISA MARIN MD DATE OF OPERATION: 03/23/2016 PREOPERATIVE DIAGNOSIS: Necrotic left great toe. POSTOPERATIVE DIAGNOSIS: Necrotic left great toe. PROCEDURE: Amputation of necrotic left great toe through the MTP joint. SURGEON: Melisa Marin MD. ANESTHESIA: General. INTRAOPERATIVE COMPLICATIONS: None. SUMMARY OF PATHOLOGIC FINDINGS: The left great toe essentially was and had dry gangrene from just distal to the MTP joint throughout the rest of the joint. OPERATIVE SUMMARY IN DETAIL: After obtaining the appropriate preoperative orthopedic surgery consent as well as anesthetic consultation, evaluation and clearance, the patient was brought to the operating room and placed on the operating table in supine position. After general laryngeal mask was administered, tourniquet was placed about the proximal aspect of the right lower extremity. Note, it was not used during this case as the patient had a recent arterial intervention incision was made as distal as possible for healthy tissue. The MTP joint was disarticulated and then a bone cutter was used to take off the condylar surfaces of the great toe phalanx as there was not appropriate amount of skin to close over this. At this point, the wound was copiously irrigated and then closed using 2-0 Prolene. Closure did look nice, it was bleeding well at the end the case. Sterile dressings were applied. The patient was awakened, taken to recovery room in stable condition. All final needle and sponge counts were correct. TRANSINT:[id number] Voice Confirmation ID: [id number] DOCUMENT ID: [id number] MELISA MARIN MD at 1452 CC: [id number] DICTATION DATE: 04/09/16 1515 QUALITY ASSURANCE CLERK: 04/09/16 2134 DIS IN 03/26/16 [facility] [id number] [place] [address]
== END 2016-03-26 11:44 | disposition home or self-care (01) | DRG 252 ==
LOC: D.M2 11:15
PROVIDERS: General Practice; Internal Medicine Nephrology; Specialist; ADMIT Internal Medicine Nephrology
PROC: 047L3ZZ Dilation of Left Femoral Artery, Percutaneous Approach (ICD-10-PCS; 2016-03-20)
PROC: 0Y6Q0Z0 Detachment at Left 1st Toe, Complete, Open Approach (ICD-10-PCS; 2016-03-20)
PROC: B41G1ZZ Fluoroscopy of Left Lower Extremity Arteries using Low Osmolar Contrast (ICD-10-PCS; 2016-03-20)
PROC: 5A1D60Z (ICD-10-PCS; principal; 2016-03-20 08:00)
DX: E11.52 Type 2 diabetes mellitus with diabetic peripheral angiopathy with gangrene (principal); N18.6 End stage renal disease; L02.612 Cutaneous abscess of left foot; I12.0 Hypertensive chronic kidney disease with stage 5 chronic kidney disease or end stage renal disease; D63.1 Anemia in chronic kidney disease; E11.22 Type 2 diabetes mellitus with diabetic chronic kidney disease; Z99.2 Dependence on renal dialysis; E11.43 Type 2 diabetes mellitus with diabetic autonomic (poly)neuropathy; K31.84 Gastroparesis; Z79.4 Long term (current) use of insulin

== ENCOUNTER → 2016-05-21 18:59 | Outpatient (CLI) | payer MEDICARE ==
[2016-03-19 10:55] VITALS: BMI 35.1
[~2016-05-21 18:59] MED LIST changes: +BAYER CHEWABLE81 MG PO; +LASIX80 MG PO; +MIDAMOR5 MG PO; +MIDODRINE HCL5 MG PO; +NEPHRO-VITE RX1 TAB PO; +PLAVIX75 MG PO; +PROTONIX40 MG PO; +RENVELA800 MG PO; +VENTOLIN HFA18 GM INH; +ZYRTEC10 MG PO
== END | disposition home or self-care (01) ==
LOC: D.LABREF 18:59
DX: Z47.81 Encounter for orthopedic aftercare following surgical amputation (principal); Z89.411 Acquired absence of right great toe

== ENCOUNTER 2016-06-04 06:52 | Day surgery (SDC) | payer MEDICARE ==
[2016-06-04] MEDS ORDERED: COREG 3.1253.125 MG PO (08:35)
[2016-06-04 09:26] LABS: BASOPHILS 0.2 % (0-2); EOSINOPHILS 2.3 % (0-7); HEMATOCRIT 37.9 % (36.0-48.0); HEMOGLOBIN 11.7 g/dL (12-16); IMMATURE GRANULOCYTES 0.3 % (0-5); LYMPHOCYTES 20.7 % (15-50); MCH 28.1 pg (26.0-34.0); MCHC 30.9 g/dL (31.0-37.0); MCV 91.1 fL (80.0-100.0); MEAN PLATELET VOLUME 9.5 fL (7.4-10.4); MONOCYTES 10.6 % (2-11); NEUTROPHILS 65.9 % (40-80); PLATELET COUNT 287 10x3/uL (130-400); RBC 4.16 10x6/uL (4.00-5.40); RDW 17.3 % (11.5-14.5); WBC 11.1 10x3/uL (4.8-10.8)
[2016-06-04 09:30] LABS: ANION GAP 18.9 mmol/L (8-16); CALCIUM 9.4 mg/dL (8.5-10.1); CREATININE - SERUM 8.9 mg/dL (0.6-1.3); POTASSIUM - SERUM 4.9 mmol/L (3.5-5.1)
[2016-06-04 09:31] LABS: HCG SERUM NEGATIVE (NEGATIVE)
[2016-06-04] MEDS ORDERED: HYDROCODONE-APA1 TAB PO (11:03)
== END 2016-06-04 15:55 | disposition home or self-care (01) ==
LOC: D.OPS 06:52
PROVIDERS: Anesthesiology
DX: S91.102A Unspecified open wound of left great toe without damage to nail, initial encounter (principal); J45.909 Unspecified asthma, uncomplicated; K21.9 Gastro-esophageal reflux disease without esophagitis; E11.22 Type 2 diabetes mellitus with diabetic chronic kidney disease; I12.0 Hypertensive chronic kidney disease with stage 5 chronic kidney disease or end stage renal disease; N18.6 End stage renal disease; Z99.2 Dependence on renal dialysis; Z01.812 Encounter for preprocedural laboratory examination

== ENCOUNTER 2016-09-06 11:50 | Emergency (ER) | payer MEDICARE ==
[2016-06-04 08:51] VITALS: BMI 37.8
[~2016-09-06 11:50] MED LIST changes: +COREG 3.1253.125 MG PO; +HYDROCODONE-APA1 TAB PO
== END 2016-09-06 14:55 | disposition home or self-care (01) ==
LOC: D.ER 11:50
DX: N76.0 Acute vaginitis (principal); B96.89 Other specified bacterial agents as the cause of diseases classified elsewhere; I12.9 Hypertensive chronic kidney disease with stage 1 through stage 4 chronic kidney disease, or unspecified chronic kidney disease; N18.9 Chronic kidney disease, unspecified; Z99.2 Dependence on renal dialysis